=== PATIENT | female | born 1985 | race American Indian/Alaskan Native ===

== ENCOUNTER 2021-03-15 10:11 | Emergency (ER) | payer SELFPAY ==
[2021-03-15 11:46] LABS: Basophils % (Auto) 0.1 % (0.0-1.8); Eosinophils # (Auto) 0.2 K/mm3 (0.0-0.4); Eosinophils % (Auto) 2.3 % (0.0-4.3); Hematocrit 36.7 % (30.3-42.9); Hemoglobin 11.8 gm/dl (10.1-14.3); Lymphocytes # (Auto) 2.4 K/mm3 (1.2-5.4); Lymphocytes % (Auto) 26.1 % (13.4-35.0); Mean Corpuscular HGB Conc 32 % (30-34); Mean Corpuscular Volume 79 fl (79-97); Monocytes # (Auto) 0.5 K/mm3 (0.0-0.8); Monocytes % (Auto) 5.8 % (0.0-7.3); Platelet Count 153 K/mm3 (140-440); Red Blood Count 4.66 M/mm3 (3.65-5.03); Red Cell Distribution Width 17.5 % (13.2-15.2)
--- NOTE | 2021-03-15 11:52 | Emergency Department Report ---
ED Female HPI - General Chief complaint: Vaginal Bleeding Stated complaint: CRAMPS/BEEN ON CYCLE FOR 48 DAYS Time Seen by Provider: 03/15/21 11:13 Source: patient Mode of arrival: Ambulatory Limitations: No Limitations - History of Present Illness Initial comments: 35-year-old female with no significant past medical history presents to the ER today with complaints of abnormal vaginal bleeding. Patient states that she has been bleeding for the past 48 days. She states that the bleeding started off as a normal menstrual cycle on February 06 and has since continued. She states that the bleeding varies between a normal period flow to very heavy with clots. She states that they were 3 days that she bled lightly and that was February 16, and but the bleeding has never stopped completely. She states that a couple days ago she started having lower abdominal pain and then today she started having "bad cramps" in her lower abdomen. She reports generalized fatigue but denies any lightheadedness, near syncope or syncopal episodes. She is not currently on any control. She states that she went to urgent care about 5 days ago for her symptoms but they told her that they could not do a pelvic exam at the urgent care because they could not do a pelvic exam did not prescribe her any medications. They also did not give her referral to an [facility]. She states that the recommend that she goes to the ER. Patient states that she has not seen an [facility] in 2 years. She is not on any anticoagulants or antiplatelet therapy and she has no bleeding disorders. She states that she had a negative test at the urgent care 5 days ago. MD Complaint: vaginal bleeding -: days(s) (48) - Related Data Previous Rx's Medication Instructions Recorded Last Taken Type Naproxen [Naprosyn] 500 mg PO BID #14 tablet 05/26/13 Unknown Rx medroxyPROGESTERone ACETATE 10 mg PO QDAY #10 tablet 03/15/21 Unknown Rx [Provera] Allergies Allergy/AdvReac Type Severity Reaction Status Date / Time No Known Allergies Allergy Unverified 05/26/13 08:40 ED Review of Systems ROS: Stated complaint: CRAMPS/BEEN ON CYCLE FOR 48 DAYS Other details as noted in HPI Comment: All other systems reviewed and negative Constitutional: malaise. denies: chills, fever Eyes: denies: eye pain, eye discharge, vision change ENT: denies: ear pain, throat pain, dental pain, epistaxis, congestion Respiratory: denies: cough, shortness of breath, SOB with exertion, SOB at rest, wheezing Cardiovascular: denies: chest pain, palpitations, dyspnea on exertion, edema, syncope, paroxysmal nocturnal dyspnea Gastrointestinal: abdominal pain. denies: nausea, vomiting, diarrhea, constipation, hematemesis, melena, hematochezia Genitourinary: abnormal menses. denies: urgency, dysuria, frequency, hematuria, discharge, dyspareunia Musculoskeletal: back pain. denies: joint swelling, arthralgia Skin: denies: rash, lesions, change in color, change in hair/nails Neurological: denies: headache, numbness, paresthesias, confusion, abnormal gait, vertigo Psychiatric: denies: anxiety, depression, auditory hallucinations, visual hallucinations, homicidal thoughts, suicidal thoughts Hematological/Lymphatic: denies: easy bleeding, easy bruising, swollen glands ED Past Medical Hx - Past Medical History Previous Medical History?: No - Surgical History Past Surgical History?: No - Social History Smoking Status: Former Smoker Substance Use Type: Marijuana - Medications Home Medications: Home Medications Medication Instructions Recorded Confirmed Last Taken Type Naproxen [Naprosyn] 500 mg PO BID #14 tablet 05/26/13 Unknown Rx medroxyPROGESTERone ACETATE 10 mg PO QDAY #10 tablet 03/15/21 Unknown Rx [Provera] ED Physical Exam - General Limitations: No Limitations General appearance: alert, in no apparent distress - Head Head exam: Present: atraumatic, normocephalic, normal inspection - Eye Eye exam: Present: normal appearance, PERRL, EOMI Pupils: Present: normal accommodation - ENT ENT exam: Present: normal exam, mucous membranes moist - Neck Neck exam: Present: normal inspection, full ROM. Absent: tenderness, meningismus - Respiratory Respiratory exam: Present: normal lung sounds bilaterally. Absent: respiratory distress, wheezes, rales, rhonchi - Cardiovascular Cardiovascular Exam: Present: regular rate, normal rhythm, normal heart sounds - GI/Abdominal GI/Abdominal exam: Present: soft. Absent: distended, tenderness, guarding, rebound - External exam: Present: normal external exam Speculum exam: Present: vaginal bleeding (Very small amount of blood noted in the vaginal vault. No active bleeding or hemorrhaging noted. No clots noted.). Absent: vaginal discharge, cervical discharge, foreign body, tissue, laceration Bi-manual exam: Present: normal bi-manual exam, adnexal tenderness (Mild right adnexal tenderness ). Absent: cervical motion tendernes, adnexal mass - Back Exam Back exam: Present: normal inspection, full ROM - Neurological Exam Neurological exam: Present: alert, oriented X3, CN II-XII intact, normal gait - Psychiatric Psychiatric exam: Present: normal affect, normal mood - Skin Skin exam: Present: intact ED Course Vital Signs 03/15/21 03/15/21 03/15/21 10:26 13:38 13:55 Temperature 98 F Pulse Rate 59 L 62 68 Respiratory 20 16 Rate Blood Pressure 162/85 165/79 Blood Pressure 165/79 [Right] O2 Sat by Pulse 98 99 98 Oximetry ED Medical Decision Making - Lab Data Result diagrams: 03/15/21 10:56 03/15/21 10:56 - Radiology Data Radiology results: report reviewed Patient: CARROLL VARGAS MR#: [id number] : 1985 Acct:[id number] Age/Sex: 35 / F ADM Date: 03/15/21 Loc: ED Attending Dr: Ordering Physician: ADRIAN GAINES Date of Service: 03/15/21 Procedure(s): US transvaginal Accession Number(s): [id number] cc: ADRIAN GAINES ULTRASOUND PELVIS INDICATION: abnormal uterine bleeding x 48 days. TECHNIQUE: Transabdominal. Transvaginal Duplex Color Doppler used: Yes. COMPARISON: None available FINDINGS: Uterus: Present. Size: 8 x 4.9 x 6.6 cm. Endometrial complex: Thickened measuring 11 cm. Mass lesions: 3.3 cm fundal fibroid. Additional findings: None. Right Ovary -- Normal. Blood flow: Normal. Cyst or mass: None. Left Ovary-- abnormal. Blood flow: Normal. Cyst or mass: 3.2 cm cyst. Urinary Bladder: Normal. Free Fluid: None. Additional Findings: None. IMPRESSION: 1. 3.2 cm uterine fibroid. 2. Mild endometrial thickening. Signer Name: Alberto Ashby MD Signed: 03/15/2021 1:10 PM Workstation Name: [id number] - Medical Decision Making 1326: Patient currently resting comfortably in the bed. She is not in any pain distress. She is not toxic or ill-appearing. She reports no worsening bleeding since she has been in the ER. Her abdominal exam shows soft nontender abdomen. Pelvic exam showed mild right adnexal tenderness and small amount of blood in the vaginal vault but no hemorrhaging or clots noted and she had no discharge or CMT. CBC reviewed -hemoglobin and hematocrit are normal, WBC also normal and platelet count normal. CMP shows nothing acute. hCG negative. UA shows no UTI. US reviewed patient does have a 3.2cm left ovarian cyst and a 3.2 cm fibroid in the uterus but otherwise ultrasound of the pelvic unremarkable. Discussed labs and imaging results with patient. Informed her that it is important that she follows up with [facility] for further evaluation of her bleeding but in the meantime we will start her on Provera for 10 days to see if that will help the bleeding. She does not smoke nor does she has any prior history of DVT or PE. Patient was given a copy of her ultrasound report. She was given referrals to a few local [facility] offices. Patient repeat vital signs showed that her blood pressure was elevated in the 160s systolic. She denies any past history of hypertension. Currently she has no symptoms related to hypertension there is no signs of endorgan damage on exam. Recommend that she checks her blood pressure at home and informed her to follow-up with the primary care doctor listed on instructions if her blood pressure remained consistently elevated for at least 3 days. Patient expressed understanding of all instructions and agree with plan. Patient was stable at time of discharge Critical care attestation.: If time is entered above; I have spent that time in minutes in the direct care of this critically ill patient, excluding procedure time. ED Disposition Clinical Impression: Abnormal uterine bleeding, Uterine fibroid, Ovarian cyst, Elevated blood pressure reading Disposition: DC-01 TO HOME OR SELFCARE Is pt being admited?: No Does the pt Need Aspirin: No Condition: Stable Instructions: Abnormal Uterine Bleeding, How to Take Your Blood Pressure, [id number], Uterine Fibroids, [id number]-[id number], Ovarian Cyst Additional Instructions: I recommend taking the Provera as prescribed. You can take Tylenol and ibuprofen for pain. It is important that you follow-up with the [facility] listed on discharge instructions. I recommend that you try to make an appointment for next week or the week after. Continue taking your iron supplements that you have at home. Your blood pressure was elevated here in the ER. I recommend that you check your blood pressure at home. Recommend that you check it once a day on 3 different days. If your blood pressure remains persistently above 140/90 for 3 days I recommend that you follow-up with the primary care doctor listed on your discharge instructions for continued monitoring and treatment of your blood pressure. Return to the ER if your symptoms changes or worsens in any way. Prescriptions: medroxyPROGESTERone ACETATE [Provera] 10 mg PO QDAY #10 tablet Referrals: [facility], [facility] [Provider Group] - 3-5 Days [facility] [Provider Group] - 3-5 Days [facility] [Provider Group] - 3-5 Days PATI NEWBERRY MD [Staff Physician] - 3-5 Days Time of Disposition: 13:18
[2021-03-15 12:16] LABS: Alanine Aminotransferase 9 units/L (7-56); BUN/Creatinine Ratio 11; Blood Urea Nitrogen 9 mg/dL (7-17); Calcium 9.1 mg/dL (8.4-10.2); Hemolysis Index 10
[2021-03-15 13:41] VITALS: BP 165/79
[2021-03-15 14:33] LABS: Bilirubin,Urine NEG (Negative); Blood,Urine MOD (Negative); Color,Urine Yellow (Yellow); Mucus,Urine FEW /HPF; Protein,Urine <15 mg/dL mg/dL (Negative); Urobilinogen,Urine < 2.0 mg/dL (<2.0)
== END 2021-03-15 14:00 | disposition home or self-care (01) ==
LOC: ED 10:11
DX: N93.9 Abnormal uterine and vaginal bleeding, unspecified (principal); D25.9 Leiomyoma of uterus, unspecified; N83.209 Unspecified ovarian cyst, unspecified side; R03.0 Elevated blood-pressure reading, without diagnosis of hypertension; F12.90 Cannabis use, unspecified, uncomplicated; Z87.891 Personal history of nicotine dependence; Z79.899 Other long term (current) drug therapy
CPT/HCPCS: 36415; 76830; 76856; 80053; 81001; 84702; 85025; 99284